=== PATIENT | female | born 1980 | race Caucasian/White ===

== ENCOUNTER 2018-08-25 01:43 | Outpatient (CLI) | payer MEDICAID ==
[~2018-08-25] VITALS: Ht 142.2 cm; Wt 80.0 kg
[2018-08-25 01:29] VITALS: Ht 142.2 cm; Wt 80.0 kg
[~2018-08-25 01:43] MED LIST: PREN-39 PO
[2018-08-25 01:55] VITALS: BP 135/84; PULSE 66; RESP 18
[2018-08-25] MEDS ORDERED: LACTATED RINGER'S 1,000 ML IV ONE (02:30)
[2018-08-25] MEDS ORDERED: LACTATED RINGER'S 1,000 ML IV SCH (03:30)
--- NOTE | 2018-08-25 05:27 | TRIAGE ---
OB Triage Datetime Report Generated by CPN: 08/25/2018 05:26 Datetime: 08/25/2018 04:44 Labor Evaluation Frequency: x3 Monitor Mode: External Duration (sec)2399: 40-90 Quality: Moderate Pattern: Normal: <= 5 Contractions in 10 Minutes Resting Tone [place]: Relaxed Heart Rate FHR Baseline Rate: 135 Monitor Mode: External US Variability: Moderate 6-25 bpm Accelerations: 15X15 Decelerations: None Category: Category I Datetime: 08/25/2018 03:50 Labor Evaluation Frequency: x3 Monitor Mode: External Duration (sec)2399: 70-120 Quality: Moderate Pattern: Normal: <= 5 Contractions in 10 Minutes Resting Tone [place]: Relaxed Heart Rate FHR Baseline Rate: 135 Monitor Mode: External US Variability: Moderate 6-25 bpm Accelerations: 15X15 Decelerations: None Category: Category I Datetime: 08/25/2018 03:24 Monitor Mode: External Monitor Mode: External US Datetime: 08/25/2018 02:50 Labor Evaluation Frequency: 1-8 Monitor Mode: External Duration (sec)2399: 50-170 Quality: Moderate Pattern: Normal: <= 5 Contractions in 10 Minutes Resting Tone [place]: Relaxed Heart Rate FHR Baseline Rate: 130 Monitor Mode: External US Variability: Moderate 6-25 bpm Accelerations: 15X15 Decelerations: None Category: Category I Datetime: 08/25/2018 02:08 Vaginal Exam Dilatation (cms): 1.5 Effacement (%): 60 Station: -4 Exam By: CHELY Landaverde RN Membrane Status: Intact Cervix, Consistency: Soft Cervix, Position: Posterior Datetime: 08/25/2018 01:59 Time of Arrival: 08/25/2018 01:29 EGA: 39.2 Arrived By: Wheelchair Arrived From: Home Chief Complaint: c/o decreased movement and uterine contractions Movement: Decreased Contractions: Irregular Time Contractions Began: 08/24/2018 07:00 Contractions: 10 MINUTES Rupture of Membranes: Denies Vaginal Bleeding: None Vaginal Discharge: Denies Recent Sexual Intercouse: Denies Abdominal Trauma: Not Applicable Patient Complaints: Contractions Time Provider Notified: 08/25/2018 02:10 Provider Notified: SHARI Initial Plan: EFM, SVE Datetime: 08/25/2018 01:55 Stage of : OB Triage Assessment Type: Triage Maternal Assessment Level of Consciousness: Fully Conscious DTR's/Clonus: DTRs 2+; No Clonus Headache: Denies Blurred Vision: No Respiratory Effort: Unlabored; Regular Rhythm; Equal Expansion Breath Sounds, Left: Clear and Equal Breath Sounds, Right: Clear and Equal Nausea/Vomiting: Denies RUQ Epigastric Pain: Denies Lower Extremities Edema: Bilateral Lower Extremities Degree: 1+ Upper Extremities Edema: None Degree: None Facial Edema: None Temperature Route: Oral Fall Risk Assessment History of Falling: (0) No Secondary Diagnosis: (0) No Ambulatory Aid: (0) Bedrest/Nurse Assist IV Therapy: (0) No Gait: (0) Normal/Bedrest/Immobile Mental Status: (0) Oriented to Own Ability Fall Score: 0 Fall Risk Score Definition: No Risk: No action required Pain Assessment Pain Scale: 2 Pain Presence: Intermittent Pain Type: Contraction Pain Location: Abdomen Pain Goal: 2 Pain Relief Measures: Comfort Measures Datetime: 08/25/2018 01:54 Monitor Mode: External Monitor Mode: External US
--- NOTE | 2018-08-25 07:24 | PN ---
Triage Information Date/Time 08/25/18 Reason for visit: DFM Weeks of Gestation 39w2d /Para [id number] Diabetes: none Hypertention: none Additional information uc's q 10min and pressure on lower abdomen Objective Vital Signs Date Temp Pulse Resp B/P (MAP) Pulse Ox O2 O2 Flow FiO2 Time Delivery Rate 08/25/18 98.2 66 18 135/84 Room Air 01:55 (101) Intake and Output 08/24/18 08/24/18 08/25/18 1515:00 23:00 07:00 IntakeIntake Total 1000 ml BalanceBalance 1000 ml Heart Rate: 140's Contractions: >10 Minutes Apart Exam 1.5/60/-4 membrane intact Results/Medications Result Diagram: 08/25/187 08/25/187 Results 24 hrs Laboratory Tests Test 08/25/18 01:45 08/25/18 02:47 Urine Color YELLOW Urine Clarity SLIGHTLY CLOUDY A Urine pH 6.0 Urine Specific [place] 1.006 Urine Ketones NEGATIVE Urine Nitrite NEGATIVE Urine Bilirubin NEGATIVE Urine Urobilinogen NEGATIVE Urine Leukocyte Esterase TRACE A Urine Microscopic RBC 1 Urine Microscopic WBC 8 H Urine Squamous Epithelial Cells MODERATE Urine Bacteria FEW A Urine Hemoglobin NEGATIVE Urine Glucose NEGATIVE Urine Total Protein NEGATIVE White Blood Count 4.8 Red Blood Count 3.64 L Hemoglobin 10.6 L Hematocrit 32.2 L Mean Corpuscular Volume 88.5 Mean Corpuscular Hemoglobin 29.1 Mean Corpuscular Hemoglobin Concent 32.9 Red Cell Distribution Width 14.1 Platelet Count 220 Mean Platelet Volume 11.5 H Immature Granulocytes % 0.200 Neutrophils % 48.0 Lymphocytes % 43.8 Monocytes % 5.9 Eosinophils % 1.9 Basophils % 0.2 Nucleated Red Blood Cells % 0.0 Immature Granulocytes # 0.010 Neutrophils # 2.3 Lymphocytes # 2.1 Monocytes # 0.3 Eosinophils # 0.1 Basophils # 0.0 Nucleated Red Blood Cells # 0.0 Fibrinogen 464.0 H Sodium Level 138 Potassium Level 4.4 Chloride Level 109 Carbon Dioxide Level 20 L Anion Gap 9 Blood Urea Nitrogen 18 Creatinine 0.52 Est Glomerular Filtrat Rate mL/min > 60 Glucose Level 93 Uric Acid 6.0 Calcium Level 9.5 Total Bilirubin 0.3 Direct Bilirubin 0.00 Indirect Bilirubin 0.3 Aspartate Amino Transf (AST/SGOT) 46 Alanine Aminotransferase (ALT/SGPT) 31 Alkaline Phosphatase 266 H Total Protein 7.0 Albumin 3.4 Globulin 3.60 H Albumin/Globulin Ratio 0.94 Imaging Results BPP 8/8 EFW 3631+- MAG 14.9 Disposition: Discharge Assessment/Plan A IUP 39w2d NIL P discharge home with routine labor instructions RTH prn, otherwise retun to triage foe antepartum test and PIH lab in 3days LUIS MANUEL MCCARTHY MD Aug 25, 2018 07:24
== END 2018-08-25 05:10 | disposition home or self-care (01) ==
LOC: OBT 01:43 → L-D 01:47 → OBT 05:10
PROVIDERS: ATTEND Specialist
DX: O36.8130 Decreased fetal movements, third trimester, not applicable or unspecified (principal); O09.523 Supervision of elderly multigravida, third trimester; Z3A.39 39 weeks gestation of pregnancy
CPT/HCPCS: 36415; 76815; 76818; 80053; 81001; 84560; 85025; 85384; 96360; J7120; Z7500; G0463

== ENCOUNTER 2018-08-27 16:32 | Inpatient (IN) | payer MEDICAID ==
[~2018-08-27] VITALS: Ht 152.4 cm; Wt 79.9 kg
[2018-08-27 17:35] VITALS: BP 128/73; PULSE 71
--- NOTE | 2018-08-27 19:16 | HP ---
Date/Time of Note Date/Time of Note DATE: 08/27/18 TIME: 19:13 OB - History Hx of Present Free Text/Dictation 38 YO with IUP at 39.4 weeks with EDC 08/30/2018. she has higher BPs as compare to her baseline. plan is IOL Care: Good Care Ultrasounds: Normal mid trimester US Obstetrical Complications: None Medical Complications: None Past Family/Social History * Past Medical, Surgical, Family and Obstetric Histories reviewed from chart. OB Admission Exam Vital Signs Vital Signs Vital Signs Date Temp Pulse Resp B/P (MAP) Pulse Ox O2 O2 Flow FiO2 Time Delivery Rate 08/27/18 97.9 71 128/73 17:35 (91) Physical Exam HEENT: WNL Heart: Rhythm Normal Lungs: Clear, Equal Abdomen: WNL Extremities: Normal Reflexes: Normal Cervical Dilatation: 1cm Last 72 hours Lab Results CBC & BMP 08/27/18 17:35 Liver Function Test 08/27/18 17:35 Alanine Aminotransferase (ALT/SGPT) 40 Albumin 3.4 Alkaline Phosphatase 271 H Aspartate Amino Transf (AST/SGOT) 43 Direct Bilirubin 0.00 Total Protein 6.8 OB Assessment/Plan Other Assessment: IUP at 39 weeks Higher BPs as compare to her base line Induction Method: per Misoprostol Protocol BRITTNEY LAO MD Aug 27, 2018 19:16
[2018-08-27] MEDS ORDERED: OXYTOCIN 30 UNITS/LR 500 ML IV SCH ×2 (19:30)
[2018-08-27] MEDS ORDERED: CARBOPROST 250 MCG INJ IM PRN (19:30)
[2018-08-27] MEDS ORDERED: OXYTOCIN 30 UNITS/LR 500 ML IV PRN (19:30)
[2018-08-27] MEDS ORDERED: LIDOCAINE 1% (MPF) 30 ML INJ INJ PRN (19:30)
[2018-08-27] MEDS ORDERED: METHYLERGONOVINE 0.2 MG INJ IM PRN (19:30)
[2018-08-27] MEDS ORDERED: MISOPROSTOL 200 MCG TAB PR PRN (19:30)
[2018-08-27] MEDS ORDERED: MISOPROSTOL 50 MCG CAPSULE PO SCH (21:00)
[2018-08-27] MEDS: LACTATED RINGER'S 1,000 ML IV SCH (21:56)
[2018-08-28] MEDS: LACTATED RINGER'S 1,000 ML IV SCH ×2 (05:41→13:43)
[2018-08-28] MEDS ORDERED: MINERAL OIL LIGHT 10 ML VIAL TOP PRN (06:00)
[2018-08-28] MEDS ORDERED: BUTORPHANOL 2 MG INJ IV PRN (06:00)
[2018-08-28] MEDS ORDERED: OXYTOCIN 30 UNITS/LR 500 ML IV SCH (11:00)
--- NOTE | 2018-08-28 18:31 | LDN ---
Date/Time of Note Date/Time of Note DATE: 08/28/18 TIME: 18:28 Delivery Summary 38 years old with single intrauterine at 39 weeks and 5 days delivered a viable male over 1 cm right vaginal first-degree laceration. Nose and mouth suction. Rest of body delivered. Cord clamped and cut after stopping pulsation. Placenta delivered spontaneously and intact with three- vessel cord. Laceration repaired with 3-0 chromicSH needle. Patient tolerated procedure well. Time of delivery 17:06 Weight 3645 g - 8 pound and 1 ounces 8 at 1 minutes and 9 at 5 minutes EBL 150 Weeks of Gestation 39 weeks and 5 days Placenta Delivered: Spontaneously Meconium: none Episiotomy: No Anesthesia type: Local Estimated blood loss: 150 Sponge & Needle done & correct: Yes All needle counts correct: Yes Any foreign bodies felt in the: No Delivery Information Sex Infant Sex: male Apgars 1 Minute: 8 5 Minute: 9 10 Minute: 10 Suctioning Nose & mouth suctioned at brii: Yes Umbilical Cord Umbilical cord with: 3 Vessels Cord presentations: no nuchal cord Cord Blood was obtained: Yes Mother & Baby Disposition Disposition Mom & Baby to Maternity; Good: Yes JERO JETT Aug 28, 2018 18:31
[2018-08-28] MEDS: LACTATED RINGER'S 1,000 ML IV* SCH (20:26)
[2018-08-28] MEDS: DEXTROSE 5%-LR 1,000 ML IV SCH (20:26)
[2018-08-28] MEDS ORDERED: OXYCODONE/ASPIRIN (4.88/325) TAB PO PRN (20:30)
[2018-08-28] MEDS ORDERED: LANOLIN HPA 1 PKT TOP PRN (20:30)
[2018-08-28] MEDS ORDERED: MAGNESIUM HYDROXIDE 30ML CUP PO PRN (20:30)
[2018-08-28] MEDS ORDERED: BENZOCAINE 20% 56 ML SPRAY TOP PRN (20:30)
[2018-08-28] MEDS ORDERED: CARBOPROST 250 MCG INJ IM PRN (20:30)
[2018-08-28] MEDS ORDERED: DIPHENHYDRAMINE 50 MG INJ IV PRN (20:30)
[2018-08-28] MEDS ORDERED: SENNA/DOCUSATE NA (8.6MG/50MG) TAB PO PRN (20:30)
[2018-08-28] MEDS ORDERED: ACETAMINOPHEN 325 MG TAB PO PRN (20:30)
[2018-08-28] MEDS ORDERED: METHYLERGONOVINE 0.2 MG INJ IM PRN (20:30)
[2018-08-28] MEDS ORDERED: ZOLPIDEM 5 MG TAB PO PRN (20:30)
[2018-08-28] MEDS ORDERED: WITCH HAZEL/GLYCERIN PAD PR PRN (20:30)
[2018-08-28] MEDS ORDERED: ONDANSETRON 4 MG INJ IV PRN (20:30)
[2018-08-28] MEDS ORDERED: MISOPROSTOL 200 MCG TAB PR PRN (20:30)
[2018-08-28] MEDS ORDERED: DIBUCAINE 1% 30 GM OINT TOP PRN (20:30)
[2018-08-28] MEDS ORDERED: OXYTOCIN 30 UNITS/LR 500 ML IV PRN (20:30)
[2018-08-28 20:40] VITALS: BP 121/62; PULSE 74; RESP 20
[2018-08-29] MEDS: IBUPROFEN 600 MG TAB PO SCH ×4 (00:02→18:27)
[2018-08-29] MEDS: DEXTROSE 5%-LR 1,000 ML IV SCH (04:26)
[2018-08-29] MEDS: LACTATED RINGER'S 1,000 ML IV* SCH (04:26)
[2018-08-29 04:36] VITALS: BP 105/57; PULSE 86; RESP 20
--- NOTE | 2018-08-29 07:24 | DS ---
Date/Time of Note Date/Time of Note DATE: 08/29/18 TIME: 07:24 Obstetrical Discharge Record Final Diagnosis Final Diagnosis: Term delivered Vaginal Delivery Obstetrical Delivery: Spontaneous Complications Augmentation: Yes Induction: Yes Rupture of Membranes: No Condition on Discharge Physical Assessment Voiding: Yes Bowel Movement: Yes Breast: Soft, non-tender, Filling Fundus: Firm Abdomen and Incision: soft, not tender Calf Tenderness: No Patient Condition: Good BRITTNEY LAO MD Aug 29, 2018 07:24
[2018-08-29 08:00] VITALS: BP 98/50; PULSE 68; RESP 17
[2018-08-29 11:51] VITALS: BP 98/61; PULSE 65; RESP 18
[2018-08-29 16:00] VITALS: BP 141/82; PULSE 60; RESP 18
[2018-08-29 18:00] VITALS: BP 111/66
[2018-08-29 19:10] VITALS: BP 103/56; PULSE 87; RESP 18
[2018-08-30] MEDS: IBUPROFEN 600 MG TAB PO SCH ×2 (00:28→06:00)
[2018-08-30 04:00] VITALS: BP 128/75; PULSE 64; RESP 18
[2018-08-30 08:10] VITALS: BP 140/86; PULSE 57; RESP 18
[2018-08-30] MEDS ORDERED: MEASLES,MUMPS,RUBELLA VACCINE INJ SC* ONE (09:00)
[2018-08-30] MEDS ORDERED: DIPHTH/TET/ACEL PERTUSS (ADULT) 0.5 ML VIAL IM* ONE (09:00)
--- NOTE | 2018-08-31 14:02 | DELSUM ---
Delivery Summary A-C Datetime Report Generated by CPN: 08/31/2018 14:02 DELIVERY PERSONNEL Soils Engineer: [place], May MATERNAL INFORMATION Delivery Anesthesia: None Medications in Delivery: LR W/30 UNITS PITOCIN Delivery QBL (ml): 150 Placenta Cultured: No Maternal Complications: None LABOR SUMMARY EDC: 08/30/2018 00:00 No. Babies in Womb: 1 Attempted: No Labor Anesthesia: None LABOR INFORMATION Reason for Induction: Not Applicable Onset of Labor: 08/28/2018 01:07 Complete Dilatation: 08/28/2018 15:56 Oxytocin: Augmentation Group B Beta Strep: Negative Antibiotics # of Doses: 0 Steroids Given: None Reason Steroids Not Administered: Not Applicable MEMBRANES Membranes Rupture Method: Spontaneous Rupture of Membranes: 08/28/2018 01:07 Length of Rupture (hr): 15.98 Amniotic Fluid Color: Clear Amniotic Fluid Amount: Large Amniotic Fluid Odor: None STAGES OF LABOR Stage 1 hr: 14 Stage 1 min: 49 Stage 2 hr: 1 Stage 2 min: 10 Stage 3 hr: 0 Stage 3 min: 2 Total Time in Labor hr: 16 Total Time in Labor min: 1 VAGINAL DELIVERY Episiotomy: None Laceration Extension: First Degree Laceration Type: Vaginal Other Laceration: RIGHT VAGINAL WALL Laceration Repair: Yes Initial Vag Sponge Count: 10 Final Vag Sponge Count: 10 Initial Vag Sharps Count: 1 Final Vag Sharps Count: 2 Sponge Count Correct: Yes; Vaginal Sweep Performed Sharps Count Correct: Yes BABY A INFORMATION Delivery Date/Time: 08/28/2018 17:06 Method of Delivery: Vaginal Born in Route : No : N/A Forceps: N/A Vacuum Extraction: N/A Shoulder Dystocia : N/A SHOULDER DYSTOCIA BABY A Infant Delivery Date/Time: 08/28/2018 17:06 PRESENTATION/POSITION BABY A Presentation: Cephalic Cephalic Presentation: Vertex Vertex Position: Left Occipital Anterior Breech Presentation: N/A PLACENTA INFORMATION BABY A Placenta Delivery Time : 08/28/2018 17:08 Placenta Method of Delivery: Spontaneous Placenta Status: Delivered SCORES BABY A Heart Rate 1 min: >100 bpm Resp Effort 1 min: Good Cry Reflex Irritability 1 min: Cough/Sneeze/Pulls Away Muscle Tone 1 min: Some Flexion of Extrem Color 1 min: Body [place], Extremit Blue Resuscitation Effort 1 min: Tactile Stimulation SCORE 1 MIN: 8 Heart Rate 5 min: >100 bpm Resp Effort 5 min: Good Cry Reflex Irritability 5 min: Cough/Sneeze/Pulls Away Muscle Tone 5 min: Active Motion Color 5 min: Body [place], Extremit Blue Resuscitation Effort 5 min: Tactile Stimulation SCORE 5 MIN: 9 INFORMATION BABY A Gestational Age at Delivery: 39.5 Gestational Status: Full Term- 39- 40.6 Weeks Infant Outcome : Liveborn Infant Condition : Stable Sex: Male IDENTIFICATION/MEDS BABY A ID Band Number: [id number] ID Band Location: Right Leg; Left Arm Sensor Applied: Yes Sensor Number: [id number] Sensor Location : Cord Clamp Vitamin K Given : Not Given Erythromycin Given: Not Given WEIGHT/LENGTH BABY A Infant Birthweight (gm): 3645 Infant Weight (lb): 8 Infant Weight (oz): 1 Infant Length (in): 20.50 Infant Length (cm): 52.07 CORD INFORMATION BABY A No. Cord Vessels: 3 Nuchal Cord : N/A Cord Blood Taken: Yes Infant Suction: Mouth; Nose ASSESSMENT BABY A Infant Complications: None Physical Findings at Delivery: Within Normal Limits Infant Respirations: Appears Normal Certified Personal Trainer/ALS Called : No Infant Care By: ADELAIDA NICHOLAS Transferred To: Remains with Mother
== END 2018-08-30 13:30 | disposition home or self-care (01) | DRG 807 ==
LOC: OBT 16:32 → L-D 16:35 → OBT 19:00 → L-D 19:00 → PP1 08-28 20:38
PROVIDERS: ADMIT Specialist; ATTEND Specialist
PROC: 10E0XZZ Delivery of Products of Conception, External Approach (ICD-10-PCS; principal; 2018-08-28)
PROC: 0HQ9XZZ Repair Perineum Skin, External Approach (ICD-10-PCS; 2018-08-28)
DX: O75.89 Other specified complications of labor and delivery (principal); Z37.0 Single live birth; R03.0 Elevated blood-pressure reading, without diagnosis of hypertension; O70.0 First degree perineal laceration during delivery; Z3A.39 39 weeks gestation of pregnancy
CPT/HCPCS: 76818; 80053; 84560; 85025; 85384; 85610; 85730; 86592; 86850; 86900; 86901; G0463; J0595; J2590; J7120; J7121